=== PATIENT | male | born 1950 | race Caucasian/White ===

== ENCOUNTER 2019-10-02 14:02 | Outpatient (CLI) | payer OTHER, SELFPAY ==
--- NOTE | 2019-10-02 14:17 | MR_ITS ---
WS: [id number] MRI LUMBAR SPINE NONCONTRAST HISTORY: RADICULOPATHY, LUMBOSACRAL REGION, RIGHT hip pain. COMPARISON: 08/02/2017 TECHNIQUE: Sagittal and axial multisequence imaging is submitted. Increase in thoracic kyphosis. Spondylitic changes in the cervical and thoracic spine. Mild straightening of the normal lumbar lordosis. Moderate degenerative disc disease throughout the lumbar spine. 3 mm retrolisthesis of L2 and L3. Conus terminates normally at L1-2 disc level. L1-L2: Normal. L2-L3: Large extruded disc herniation extends RIGHT paracentral into the subarticular recess and ceph alad to the disc space. Extruded disc extends over length of 2.4 cm with significant mass effect and compression into the subarticular recess on the RIGHT. Moderate narrowing of the RIGHT foramen due to disc and facet disease. Mild narrowing of the LEFT foramen due to annular disc bulging and facet dis ease. L3-L4: Diffuse annular disc bulging with facet and ligamentum flavum arthritis. Mild foraminal narrow ing. L4-L5: Diffuse annular disc bulging and osteophytic ridging. Asymmetric facet joint arthropathy great est on the LEFT. Mild central stenosis with mild subarticular recess and RIGHT foraminal stenosis. Mo derate LEFT foraminal stenosis. L5-S1: Diffuse annular disc bulging and osteophytic ridging with facet disease. Moderate to severe LE FT subarticular recess stenosis. Disc osteophyte causing severe foraminal stenosis on the LEFT and mi ld on the RIGHT. Visualized retroperitoneum is negative. MR/MR lumbar spine wo con* [id number] IMPRESSION: 1. New large disc extrusion at L2-3 involving the RIGHT paracentral region ext ending into the subarticular recess and also cephalad to the disc space. This l obulated disc extrusion measures 2.4 cm in length and is causing significant st enosis and compression upon the thecal sac and nerve roots. 2. Severe central, subarticular recess and moderate RIGHT and mild stenosis a t the L2-3 level. 3. Mild central stenosis with mild subarticular recess and RIGHT foraminal yessy nosis at L4-5. Moderate LEFT foraminal stenosis L4-5. 4. Moderate to severe LEFT subarticular recess stenosis at L5-S1. Severe LEFT foraminal stenosis L5-S1.
== END 2019-10-02 14:03 | disposition home or self-care (01) ==
LOC: RADWPI 14:08
PROVIDERS: Family Provider Internal Medicine; PCP Internal Medicine; Visit Provider Family Medicine
DX: M54.17 Radiculopathy, lumbosacral region (principal)
CPT/HCPCS: 72148

== ENCOUNTER → 2020-11-06 09:00 | Outpatient (BNVA) | payer OTHER, SELFPAY | PROVIDERS: Family Provider Internal Medicine; PCP Family Medicine; Visit Provider Internal Medicine Cardiovascular Disease | DX: Z01.812 Encounter for preprocedural laboratory examination (principal); Z20.822 Contact with and (suspected) exposure to COVID-19; I10 Essential (primary) hypertension; I25.2 Old myocardial infarction; I77.9 Disorder of arteries and arterioles, unspecified | CPT/HCPCS: 80048; 83880; 85025; 85610; 87635 ==

== ENCOUNTER 2020-11-11 06:57 | Day surgery (SDC) | payer OTHER, MEDICARE, SELFPAY ==
[2020-11-11 07:22] VITALS: BP 138/69; PULSE 55; RESP 16; TEMP 36.8; O2SAT 98
[2020-11-11 07:25] VITALS: BMI 26.2
--- NOTE | 2020-11-11 08:55 | PC.NURSE ---
Time Out completed prior to procedure at 0855 with physician and nursing staff present.
[2020-11-11 09:07] VITALS: BP 142/70; PULSE 51; RESP 18; O2SAT 97
--- NOTE | 2020-11-11 09:10 | SUR.PHASEII ---
Loop Recorder removed from left chest by physician via sterile procedure. 18 ml lidocaine given by physician during removal. Time out preformed before procedure. Once removal held pressure for approx 5 minutes, bleeding minimal. Applied sterile steri strips and sterile covaderm. Pt educated on activity status and reportable signs and symptoms post removal. Pt verbalized understanding.
[2020-11-11 09:15] VITALS: BP 138/76; PULSE 51; RESP 18; O2SAT 97
[2020-11-11 09:30] VITALS: BP 153/70; PULSE 52; RESP 18; O2SAT 98
--- NOTE | 2020-11-11 09:37 | W.PM.OPSUD ---
Surgery/Procedure H&P Update DATE OF PROCEDURE: November 11, 2020 DATE H&P PERFORMED: 10/16/20 H&P UPDATE INFORMATION: I have reviewed H&P completed within last 30 days, I have examined patient prior to procedure and No changes to prior documentation PREOP DIAGNOSIS: Implantable die cast technician, end of life for the device PRIMARY INDICATION FOR PROCEDURE: As above PLANNED PROCEDURE: Operation Date: 11/11/20 08:30 Proposed Procedures p Loop Recorder Removal [id number](Not Applicable) - Henrietta Garrett MD
[2020-11-11 09:45] VITALS: BP 144/68; PULSE 50; RESP 16; O2SAT 97
--- NOTE | 2020-11-11 10:00 | PC.NURSE ---
Discharge Verbal and written discharge instructions given to patient at this time. Pt verbalized understanding of instructions, denies any questions regarding discharge at this time. Left chest dressing clean and dry. Scant amount of drainage to dressing. Pt escorted out of facility by ambulation and accompanied by family member.
--- NOTE | 2020-11-25 16:37 | PM.OP ---
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 Garrett PREOPERATIVE DIAGNOSIS: Recurrent syncope. POSTOPERATIVE DIAGNOSIS: same ESTIMATED BLOOD LOSS: None COMPLICATIONS: None. BRIEF HISTORY: This is [id number] white male with a history of recurrent syncope, had an ICM placement on Jun 17 2017. This patient had. Device has reached end-of-life. So it was decided to explant the device PROCEDURE: The procedure was explained to the patient in detail with the risks and benefits. The patient understood this well and consented to proceed. The patient was brought to the [facility]. The left side of the neck and the precordial region were cleaned and draped in a sterile fashion. 1% Xylocaine was used as local anesthetic agent. Patient was given 2 gm of Keflex by mouth, half an hour prior to the procedure A 1/3 inch long incision was made at the previous implantation scar. By sharp and blunt dissection, the monitor and storage bin tender pocket was accessed. The device was delivered from the pocket. Complete hemostasis was achieved. The skin was approximated with Steri-Strips The explanted device Reveal LINQ Model number: LNQ11 Serial number: [id number] Make: CADsurf Pressure dressing was applied over the insertion site. The patient was transferred to the medical floor in stable condition.
== END 2020-11-11 10:00 | disposition home or self-care (01) ==
PROVIDERS: Visit Provider Internal Medicine Cardiovascular Disease
PROC: (CPT 33286; principal; 2020-11-11 08:30)
DX: R55 Syncope and collapse (principal); E78.5 Hyperlipidemia, unspecified; I25.10 Atherosclerotic heart disease of native coronary artery without angina pectoris; I10 Essential (primary) hypertension; I25.2 Old myocardial infarction; Z82.49 Family history of ischemic heart disease and other diseases of the circulatory system; Z83.3 Family history of diabetes mellitus; Z87.891 Personal history of nicotine dependence; I34.0 Nonrheumatic mitral (valve) insufficiency; I77.9 Disorder of arteries and arterioles, unspecified
CPT/HCPCS: 33286; C1769

== ENCOUNTER → 2021-07-23 13:28 | Outpatient (BNVA) | payer OTHER, MEDICARE, SELFPAY | PROVIDERS: Referring Provider Family Medicine; Visit Provider Podiatrist Foot & Ankle Surgery | DX: M21.611 Bunion of right foot (principal); M21.612 Bunion of left foot; F17.210 Nicotine dependence, cigarettes, uncomplicated | CPT/HCPCS: 73630; 99204 ==

== ENCOUNTER → 2022-08-02 11:37 | Outpatient (BNVA) | payer OTHER, SELFPAY | PROVIDERS: Visit Provider Internal Medicine Cardiovascular Disease | DX: I77.9 Disorder of arteries and arterioles, unspecified (principal); I34.0 Nonrheumatic mitral (valve) insufficiency; E78.2 Mixed hyperlipidemia; F17.200 Nicotine dependence, unspecified, uncomplicated | CPT/HCPCS: 99213 ==

== ENCOUNTER → 2023-03-15 09:09 | Outpatient (BNVA) | payer OTHER, SELFPAY | PROVIDERS: Visit Provider Nurse Practitioner Family | DX: L57.0 Actinic keratosis (principal); L82.0 Inflamed seborrheic keratosis; L72.0 Epidermal cyst; L57.8 Other skin changes due to chronic exposure to nonionizing radiation; D22.39 Melanocytic nevi of other parts of face | CPT/HCPCS: 17000; 17110; 99213 ==

== ENCOUNTER → 2023-12-06 12:13 | Outpatient (BNVA) | payer OTHER, SELFPAY | PROVIDERS: PCP Family Medicine; Referring Provider Family Medicine; Visit Provider Internal Medicine | DX: I34.0 Nonrheumatic mitral (valve) insufficiency (principal); I77.9 Disorder of arteries and arterioles, unspecified; E78.2 Mixed hyperlipidemia; F17.200 Nicotine dependence, unspecified, uncomplicated | CPT/HCPCS: 99214 ==

== ENCOUNTER → 2024-02-02 08:38 | Outpatient (BNVA) | payer OTHER, SELFPAY | PROVIDERS: PCP Family Medicine; Visit Provider Nurse Practitioner Family | DX: L57.0 Actinic keratosis (principal); L72.0 Epidermal cyst; D22.39 Melanocytic nevi of other parts of face; L81.4 Other melanin hyperpigmentation; D18.01 Hemangioma of skin and subcutaneous tissue; L73.8 Other specified follicular disorders; F17.200 Nicotine dependence, unspecified, uncomplicated | CPT/HCPCS: 10060; 17000; 99213 ==

== ENCOUNTER 2024-02-13 07:28 | Outpatient (CLI) | payer OTHER, SELFPAY ==
--- NOTE | 2024-02-13 08:00 | USCV_ITS ---
Mason Peng Age: 73 Gender: M : 1950 Exam Date: 02/13/2024 07:51 Ordering Phys: Christian Ervin M.D ([email or web address]) Technologist: Exam [place] [facility] [place]: mr BP: 140 / 80 HR: 55 Rhythm: Sinus Technical Quality: Adequate MEASUREMENTS (Male / Female) Normal Values 2D ECHO LV Diastolic Diameter PLAX 4.3 cm 4.2 - 5.9 / 3.9 - 5.3 cm IVS Diastolic Thickness 1.3 cm 0.6 - 1.0 / 0.6 - 0.9 cm IVS Systolic Thickness 1.5 cm LVPW Diastolic Thickness 1.2 cm 0.6 - 1.0 / 0.6 - 0.9 cm LVPW Systolic Thickness 1.7 cm LVOT Diameter 2.4 cm LV Ejection Fraction 2D Teich 63.4 % LV Ejection Fraction MOD 4C 43.6 % LV Ejection Fraction MOD 2C 47.8 % LV Ejection Fraction 2C AL 49.0 % LA Diameter 4.3 cm Aorta at Sinotubular Diameter 2.8 cm IVC Diameter 1.5 cm DOPPLER AV Peak Velocity 116.0 cm/s MV Peak Velocity 147.0 cm/s TR Peak Velocity 246.0 cm/s TR Peak Gradient 24.2 mmHg TV Peak E Velocity 68.0 cm/s Right Atrial Pressure 3.0 mmHg Pulmonary Artery Systolic Pressu 27.2 mmHg PV Peak Velocity 98.0 cm/s FINDINGS Left Ventricle Moderately increased left ventricular cavity size.moderately decreased left ventricular systolic function. Left ventricular ejection fraction is estimated at 45 %. 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 Right Ventricle The right ventricle is normal in size and function. Right Atrium The right atrium is normal in size. Left Atrium The left atrium is normal in size. Mitral Valve Mildly thickened mitral valve. No mitral valve stenosis. Moderate mitral valve regurgitation. Aortic Valve Thickened aortic valve. No aortic valve stenosis. Tricuspid Valve Structurally normal tricuspid valve without significant stenosis or regurgitation. Pulmonary artery systolic pressure is normal. Pulmonic Valve Structurally normal pulmonic valve without significant stenosis. There is no pulmonic regurgitation. Pericardium Normal pericardium without effusion. Aorta Normal ascending aorta dimension. IVC The inferior vena cava appears normal. CONCLUSIONS Moderately increased left ventricular cavity size.moderately decreased left ventricular systolic function. Left ventricular ejection fraction is estimated at 45 %. 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 Mildly thickened mitral valve. No mitral valve stenosis. Moderate mitral valve regurgitation. There is no pericardial effusion. Pulmonary artery systolic pressure is within normal limits. Right atrial pressure is around 5 mm of mercury. Pat Otero MD (Electronically Signed) Final Date: 14 February 2024 21:08 S
== END 2024-02-13 07:29 | disposition home or self-care (01) ==
LOC: RAD 07:29
PROVIDERS: PCP Family Medicine; Visit Provider Internal Medicine
DX: I34.0 Nonrheumatic mitral (valve) insufficiency (principal); I51.7 Cardiomegaly; I50.20 Unspecified systolic (congestive) heart failure; I50.30 Unspecified diastolic (congestive) heart failure; I24.9 Acute ischemic heart disease, unspecified; I35.0 Nonrheumatic aortic (valve) stenosis
CPT/HCPCS: 93306

== ENCOUNTER → 2024-03-14 12:17 | Outpatient (BNVA) | payer OTHER, SELFPAY | PROVIDERS: PCP Family Medicine; Visit Provider Dermatology | DX: D48.5 Neoplasm of uncertain behavior of skin (principal); R20.8 Other disturbances of skin sensation; R23.8 Other skin changes; L53.8 Other specified erythematous conditions | CPT/HCPCS: 11402; 13101 ==

== ENCOUNTER → 2024-12-04 13:08 | Outpatient (BNVA) | payer OTHER, SELFPAY | PROVIDERS: PCP Family Medicine; Visit Provider Internal Medicine | DX: I51.89 Other ill-defined heart diseases (principal); I34.0 Nonrheumatic mitral (valve) insufficiency; I77.9 Disorder of arteries and arterioles, unspecified; E78.5 Hyperlipidemia, unspecified; F17.200 Nicotine dependence, unspecified, uncomplicated; I25.2 Old myocardial infarction; I10 Essential (primary) hypertension | CPT/HCPCS: 99214 ==

== ENCOUNTER → 2025-01-31 08:25 | Outpatient (BNVA) | payer OTHER, SELFPAY | PROVIDERS: PCP Family Medicine; Visit Provider Nurse Practitioner Family | DX: D18.01 Hemangioma of skin and subcutaneous tissue (principal); L81.4 Other melanin hyperpigmentation; L57.8 Other skin changes due to chronic exposure to nonionizing radiation; L82.0 Inflamed seborrheic keratosis; L29.89 Other pruritus; R20.8 Other disturbances of skin sensation; L53.8 Other specified erythematous conditions; D48.5 Neoplasm of uncertain behavior of skin | CPT/HCPCS: 11102; 17110; 99213 ==